=== PATIENT | female | born 2000 | race Caucasian/White ===

== ENCOUNTER → 2023-12-17 16:00 | Outpatient (REF) | payer BC, SELFPAY | LOC: MRI 3T 16:00 | PROVIDERS: ATTENDING PHYSICIAN Nurse Practitioner Primary Care | DX: M51.26 Other intervertebral disc displacement, lumbar region (principal); R20.2 Paresthesia of skin; M54.16 Radiculopathy, lumbar region | CPT/HCPCS: 72148 ==